=== PATIENT | male | born 1990 | race Caucasian/White ===

== ENCOUNTER 2016-10-15 18:22 | Emergency (ER) | payer OTHER ==
[~2016-10-15] VITALS: Ht 165.1 cm; Wt 66.2 kg
[2016-10-15] MEDS ORDERED: DIPH,PERTUSS(ACELL),TET VAC/PF 0.5 ML IM-VACC ONE ×2 (19:31→20:00)
[2016-10-15] MEDS ORDERED: LIDOCAINE 1%, 20ML ONE (19:31)
[2016-10-15 19:35] VITALS: BP 120/80
== END 2016-10-15 20:45 | disposition home or self-care (01) ==
LOC: ED 19:00
DX: S61.213A Laceration without foreign body of left middle finger without damage to nail, initial encounter (principal); W26.0XXA Contact with knife, initial encounter; Y93.89 Activity, other specified; Y92.89 Other specified places as the place of occurrence of the external cause; Y99.9 Unspecified external cause status
CPT/HCPCS: 12001; 90471; 90715

== ENCOUNTER 2016-10-23 16:53 | Emergency (ER) | payer OTHER ==
[~2016-10-23] VITALS: Ht 165.1 cm; Wt 64.5 kg
[2016-10-23 16:56] VITALS: BP 117/75
== END 2016-10-23 17:26 | disposition home or self-care (01) ==
LOC: ED 17:15
DX: Z48.02 Encounter for removal of sutures (principal)
CPT/HCPCS: 99281